=== PATIENT | female | born 1985 | race Caucasian/White ===

== ENCOUNTER 2017-02-24 18:44 | Observation (INO) | payer OTHER ==
[~2017-02-24 18:44] MED LIST: YASMIN 28 TABLE1 TAB PO; ZOFRAN4 MG PO
[2017-02-24 18:58] LABS: URINE APPEARANCE CLEAR; URINE BILIRUBIN NEGATIVE (NEG); URINE BLOOD NEGATIVE (NEG); URINE COLOR PALE YELLOW; URINE GLUCOSE (UA) NEGATIVE (NEG); URINE KETONE NEGATIVE (NEG); URINE LEUKOCYTE ESTERASE NEGATIVE (NEG); URINE NITRITE NEGATIVE (NEG); URINE PROTEIN NEGATIVE (NEG); URINE SPECIFIC GRAVITY 1.015 (1.003-1.030)
[2017-02-24] MEDS ORDERED: PRENA1 CHEW TA1.4 M1 (19:10)
[2017-02-24] MEDS ORDERED: CALCIUM CARBON500 M2 (19:16)
[2017-02-24] MEDS ORDERED: IRON325 M3 (19:16)
[2017-02-24] MEDS ORDERED: VITAMIN C500 M3 (19:17)
[2017-02-24] MEDS ORDERED: MAG GLYCINATE (19:17)
== END 2017-02-24 20:25 ==
LOC: LDR 18:44
PROVIDERS: Obstetrics & Gynecology; ADMIT Obstetrics & Gynecology
DX: O36.8130 Decreased fetal movements, third trimester, not applicable or unspecified (principal); Z3A.37 37 weeks gestation of pregnancy

== ENCOUNTER 2017-03-06 00:30 | Inpatient (IN) | payer OTHER ==
[~2017-03-06 00:30] MED LIST changes: +CALCIUM CARBON500 M2; +IRON325 M3; +MAG GLYCINATE; +PRENA1 CHEW TA1.4 M1; +VITAMIN C500 M3
[2017-03-06 01:43] LABS: BASO % 0.2 % (0-2); EOS % 0.6 % (0-7); EOSINOPHIL ABSOLUTE COUNT 0.1 tho/cmm (0.0-0.7); HCT-HEMATOCRIT 35.5 % (34.0-49.0); HGB-HEMOGLOBIN 12.4 gm/dl (12.0-15.5); IMMATURE GRANULOCYTES ABSOLUTE 0.02 tho/cmm (0-0.03); IMMATURE GRANULOCYTES PERCENT 0.2 % (0-0.3); LYMPH % 33.8 % (20-45); LYMPH ABSOLUTE COUNT 2.9 tho/cmm (0.8-4.5); MCH (MEAN CORPUSCULAR HGB) 30.2 pg (28.0-32.0); MCHC MEAN CORPUSCULAR HGB CONC 34.9 % (32.0-36.0); MCV (MEAN CELL VOLUME) 86.6 fl (82.0-96.0); MEAN PLATELET VOLUME 9.5 cmc (9.4-12.4); MONOCYTE ABSOLUTE COUNT 0.5 tho/cmm (0.0-1.2); NEUTROPHIL ABSOLUTE COUNT 5.1 tho/cmm (1.6-8.0); NEUTROPHIL-AUTOMATED 5.1 tho/cmm (1.6-8.0); NEUTROPHILS % 59.2 % (40-80); PLATELET COUNT 291 tho/cmm (150-450); RED CELL DISTRIBUTION WIDTH 14.3 % (12.4-16.4); WHITE BLOOD COUNT 8.6 tho/cmm (4.0-10.0)
[2017-03-07 06:44] LABS: BASO % 0.1 % (0-2); HCT-HEMATOCRIT 32.8 % (34.0-49.0); IMMATURE GRANULOCYTES ABSOLUTE 0.05 tho/cmm (0-0.03); IMMATURE GRANULOCYTES PERCENT 0.3 % (0-0.3); LYMPH % 9.2 % (20-45); LYMPH ABSOLUTE COUNT 1.8 tho/cmm (0.8-4.5); MCH (MEAN CORPUSCULAR HGB) 29.4 pg (28.0-32.0); MCHC MEAN CORPUSCULAR HGB CONC 33.5 % (32.0-36.0); MCV (MEAN CELL VOLUME) 87.7 fl (82.0-96.0); MEAN PLATELET VOLUME 9.5 cmc (9.4-12.4); MONO % 5.3 % (0-12); NEUTROPHIL ABSOLUTE COUNT 16.4 tho/cmm (1.6-8.0); NEUTROPHIL-AUTOMATED 16.4 tho/cmm (1.6-8.0); NEUTROPHILS % 85.1 % (40-80); PLATELET COUNT 268 tho/cmm (150-450); RED BLOOD COUNT 3.74 mil/cmm (4.00-5.20); RED CELL DISTRIBUTION WIDTH 14.6 % (12.4-16.4)
[2017-03-07 06:47] LABS: WHITE BLOOD COUNT 19.2 tho/cmm (4.0-10.0)
[2017-03-10] MEDS ORDERED: COLACE100 M1 PO (00:26)
[2017-03-10] MEDS ORDERED: PERCOCET 5-3251 EACH PO (00:26)
[2017-03-10] MEDS ORDERED: IBUPROFEN800 M1 PO (00:26)
== END 2017-03-10 13:00 | DRG 766 ==
LOC: LDR 00:30 → OBGE 19:13
PROVIDERS: ADMIT Obstetrics & Gynecology
PROC: 10D00Z1 Extraction of Products of Conception, Low, Open Approach (ICD-10-PCS; principal; 2017-03-06)
PROC: 3E0P7GC Introduction of Other Therapeutic Substance into Female Reproductive, Via Natural or Artificial Opening (ICD-10-PCS; principal; 2017-03-06)
DX: O32.4XX0 Maternal care for high head at term, not applicable or unspecified (principal); J06.9 Acute upper respiratory infection, unspecified; O99.53 Diseases of the respiratory system complicating the puerperium; O99.89 Other specified diseases and conditions complicating pregnancy, childbirth and the puerperium; R31.9 Hematuria, unspecified; Z3A.39 39 weeks gestation of pregnancy; Z37.0 Single live birth
CPT/HCPCS: J0690; J1170; J2590; J2795